=== PATIENT | female | born 1995 | race Caucasian/White ===

== ENCOUNTER 2023-12-23 23:56 | Observation (INO) | payer OTHER ==
[~2023-12-23] VITALS: Ht 170.2 cm; Wt 123.4 kg
[2023-12-24] MEDS: TERBUTALINE SULFATE 1 MG/ML 1ML VIAL SC SCH (00:50)
[2023-12-24] MEDS: TERBUTALINE SULFATE 1 MG/ML 1ML VIAL SC ONE (00:57)
[2023-12-24] MEDS: LACTATED RINGER'S 1,000 ML IV ONE (00:57)
[2023-12-24 01:02] LABS: Urine Bacteria FEW /hpf (None Seen); Urine Blood Negative /uL (Negative); Urine Clarity Clear (Clear); Urine Color Colorless (Yellow); Urine Protein, UAD Negative (Negative); Urine Specific Gravity 1.007 (1.001-1.035); Urine Urobilinogen Normal (Negative); Urine WBC 2 /hpf (0 - 5)
[2023-12-24] MEDS: LACTATED RINGER'S 1,000 ML IV SCH (01:31)
[2023-12-24 01:34] LABS: Amphetamine Screen, Urine Neg (NEGATIVE)
[2023-12-24 01:35] LABS: Barbiturate Scree,Urine Neg (NEGATIVE); Benzodiazephine Screen, Urine Neg (NEGATIVE); Cannabinoid Screen, Urine Neg (NEGATIVE); Cocaine Screen, Urine Neg (NEGATIVE); Opiate Scree,Urine Neg (NEGATIVE); Phencyclidine Screen, Urine Neg (NEGATIVE)
[2023-12-24] MEDS: NIFEdipine 10 MG CAP PO ONE (02:24)
== END 2023-12-24 04:23 | disposition home or self-care (01) ==
LOC: LDRP 23:56
PROVIDERS: ADMIT Obstetrics & Gynecology; ATTEND Obstetrics & Gynecology
DX: O62.9 Abnormality of forces of labor, unspecified (principal); O26.893 Other specified pregnancy related conditions, third trimester; R10.9 Unspecified abdominal pain; Z3A.36 36 weeks gestation of pregnancy; Z98.891 History of uterine scar from previous surgery; Z79.899 Other long term (current) drug therapy
CPT/HCPCS: 59025; 76805; 76815; 76818; 80307; 81001; 81002; 94760; 96360; 96361; 96372; G0378; J3105